=== PATIENT | female | born 1950 | race Caucasian/White ===

== ENCOUNTER 2020-10-19 12:07 | Emergency (ER) | payer MEDICARE, SELFPAY ==
--- NOTE | ~2020-10-19 | XR_ITS ---
XR chest 2V DATE: 10/19/2020 13:51 INDICATION: Shortness of breath and wheezing for one week TECHNIQUE: PA and lateral views COMPARISON: None FINDINGS: There is cardiomegaly. There is aortic unfolding. Pulmonary vascular redistribution suggests mild pulmonary venous hypertension. No pulmonary infiltrate or consolidation, pleural effusion or pneumothorax is evident. Surgical clips, right upper quadrant, likely due to cholecystectomy. IMPRESSION: Cardiomegaly Pulmonary vascular redistribution suggests mild pulmonary venous hypertension Reviewed, dictated and finalized at location A.
[2020-10-19 12:19] VITALS: BP 131/38; PULSE 80; RESP 20; TEMP 36.7; O2SAT 94
--- NOTE | 2020-10-19 13:56 | ED.URI ---
HPI - URI/Sore Throat General Chief Complaint: Upper Respiratory Infection Stated Complaint: Shortness of breath, coughing, congestion Time Seen by Provider: 10/19/20 12:45 Source: patient, family, RN notes reviewed and old records reviewed Mode of arrival: ambulatory Limitations: no limitations History of Present Illness HPI Narrative: 69-year-old female who presents to [facility] with complaints of 5-day history of cough tiredness, shortness of breath with some wheezing, has noted also some white-greenish sputum, she has felt feverish at times. Patient states she has had her Covid vaccinations x2 but did play bingo last week and no one was wearing masks.Patient lives with son and is exposed to second hand tobacco, she used tobacco for 10 years but quit 20 years ago. Patient Patient reports that she feels short of breath with minimal exertion and cough is frequent, has noted wheezing in all lung kirk on auscultation with decreased lung sounds MD elicited complaint: cough, rhinorrhea and nasal congestion Pertinent past history: other (bronchitis) Consistency: constant Related Data Home Medications Medication Instructions Recorded Confirmed acetaminophen-codeine 1 tablet PO Q6H PRN 10/19/20 10/19/20 aspirin [Aspirin Childrens] 81 mg PO DAILY 10/19/20 10/19/20 cholecalciferol (vitamin D3) 25 mcg PO DAILY 10/19/20 10/19/20 [Vitamin D3] ferrous gluconate [Chelated Iron] 324 mg PO DAILY 10/19/20 10/19/20 ferrous sulfate [iron] 325 mg PO DAILY 10/19/20 10/19/20 furosemide 40 mg PO DAILY 10/19/20 10/19/20 gabapentin 100 mg PO HS 10/19/20 10/19/20 levothyroxine 88 mcg PO DAILY 10/19/20 10/19/20 losartan 50 mg PO DAILY 10/19/20 10/19/20 mecobalamin (vitamin B12) 1,000 mcg SUBLINGUAL DAILY 10/19/20 10/19/20 metformin 2,000 mg PO DAILY 10/19/20 10/19/20 potassium chloride 20 meq PO HS 10/19/20 10/19/20 ropinirole 2 mg PO HS 10/19/20 10/19/20 rosuvastatin 5 mg PO DAILY 10/19/20 10/19/20 sitagliptin [Januvia] 100 mg PO DAILY 10/19/20 10/19/20 Allergies Allergy/AdvReac Type Severity Reaction Status Date / Time olmesartan [From Benicar] AdvReac Nausea and Verified 10/19/20 12:51 Vomiting Penicillins AdvReac Other Verified 10/19/20 12:49 Review of Systems Review of Systems: CONSTITUTIONAL: report has felt feverish with some chills, or sweats. EYES: Denies visual changes, redness, or discharge. ENT: Positive nasal rhinorrhea, congestion,no sore throat, or otalgia. CARDIOVASCULAR: Denies chest pain, palpitations, or edema. RESPIRATORY: Positive cough or dyspnea. GASTROINTESTINAL: Denies abdominal pain, nausea, vomiting, or diarrhea. GENITOURINARY: Denies dysuria or hematuria. SKIN: Denies rash or itching. MUSCULOSKELETAL: Denies acute back pain, joint pain, or myalgia. NEUROLOGIC: Denies headache, numbness reports fatigue PSYCHIATRIC: Denies anxiety or depression. All systems reviewed & are unremarkable except as noted in HPI and below PMFSH Past Medical History Medical History (Updated 10/24/20 @ 09:11 by Mahsa Cheng NP) Arthritis Bronchitis Diabetes Hyperlipidemia Hypertension Hypothyroid Leg swelling Neuropathy INEZ (obstructive sleep apnea) CPAP Restless leg Surgical History Surgical History (Updated 10/24/20 @ 09:09 by Mahsa Cheng NP) History of hysterectomy History of repair of rotator cuff left History of total right knee replacement History of tubal ligation Hx of cholecystectomy Family History Family History (Updated 10/24/20 @ 09:11 by Mahsa Cheng NP) Other Diabetes mellitus Hypertension Social History Social History (Updated 10/24/20 @ 09:10 by Mahsa Cheng NP) Social History: is exposed to second hand tobacco Smoking packs per day: 0.5 Smoking cigarettes per day: 10.0 Years smoked: 10 Smoking pack-years: 5.00 Smoking status: Former smoker Tobacco type: cigarettes Additional smoking assessment comments: quit 20 years ago Alcohol intake:
[2020-10-20 20:10] LABS: SARS-CoV-2 RNA PCR Negative
== END 2020-10-19 14:20 | disposition home or self-care (01) ==
PROVIDERS: Emergency Provider Registered Nurse; PCP Internal Medicine
DX: J40 Bronchitis, not specified as acute or chronic (principal); Z20.822 Contact with and (suspected) exposure to COVID-19; Z87.891 Personal history of nicotine dependence; E78.5 Hyperlipidemia, unspecified; I10 Essential (primary) hypertension; E03.9 Hypothyroidism, unspecified; E11.40 Type 2 diabetes mellitus with diabetic neuropathy, unspecified; G47.33 Obstructive sleep apnea (adult) (pediatric); G25.81 Restless legs syndrome; Z96.651 Presence of right artificial knee joint; M19.90 Unspecified osteoarthritis, unspecified site
CPT/HCPCS: 71046; 87426; 99213; C9803; G0463; U0003; U0005